=== PATIENT | female | born 1985 | race Caucasian/White ===

== ENCOUNTER 2024-10-03 10:32 | Emergency (ER) | payer BC, SELFPAY ==
[2024-10-03 10:47] VITALS: BP 111/71; PULSE 84; RESP 18; TEMP 36.6; O2SAT 100
--- NOTE | 2024-10-03 11:09 | ED.SKABFB ---
HPI - Skin/Abscess/Foreign Bdy General Chief complaint: Skin/Abscess/Foreign Body Stated complaint: PAIN/REDNESS UNDER L ARMPIT Time Seen by Provider: 10/03/24 11:10 Source: patient and RN notes reviewed Mode of arrival: ambulatory Limitations: no limitations History of Present Illness HPI narrative: 39-year-old female presents to the [facility] with inflammation, bums to the left axilla. Patient reports that she shaved 3 days ago, now has a couple raised pink areas to the left axilla. Tender to palpation. Patient reports that she is breast feeding. Denies any significant past medical or surgical history Onset (ago): day(s) (1) Treatments prior to arrival: none Related Data Allergies Allergy/AdvReac Type Severity Reaction Status Date / Time No Known Allergies Allergy Verified 10/03/24 10:46 Review of Systems Review of Systems: All systems reviewed & are unremarkable except as noted in HPI and below Constitutional: Constitutional: Reports no additional constitutional complaints Musculoskeletal: Musculoskeletal: Reports no additional musculoskeletal complaints Integumentary/Breasts: Skin/Breast: Reports as per HPI PMFSH Comments At the time of my signature, I reviewed and agree with the nursing past medical, surgical, social, and family history. There is no relevant family history pertinent to the patient complaint. Exam Const: General: cooperative, healthy appearing, comfortable, no acute distress, well developed, alert and well nourished Nutritional Appearance: well nourished Orientation/consciousness: patient oriented x3 Limitations: no limitations HENMT: Head: normal to inspection Eyes: General: appearance normal, both eyes and all related structures Alignment and Position: alignment normal Neck: Neck: normal visual inspection, full ROM, no lymphadenopathy and no meningeal signs Chest: Chest palpation & inspection: normal inspection of the chest Resp: Effort & Inspection: normal respiratory effort and able to speak in complete sentences Cardio: Rate: regular rate Skin: General skin exam: normal color and no rashes or lesions noted Other: Mild inflammation to the 3 areas of the left axilla, pink in color, no increased warmth. Neuro: General: patient oriented x3, gait normal, moves all extremities and no meningeal signs Cognition (Neuro): normal cognition Speech: normal speech Gait exam (Neuro): Normal gait present Extrem: General: normal to inspection, full ROM, capillary refill normal and normal gait Psych: Appearance: grossly normal and well kempt Mental Status: mental status grossly normal Speech and movement: Normal speech and movement present and Clear speech present Affect: normal affect Attitude: cooperative Course Course Level of Care: Express Care Visit Vital Signs Vital signs: Vital Signs Temperature 98 F 10/03/24 10:47 Pulse Rate 84 10/03/24 10:47 Respiratory Rate 18 10/03/24 10:47 Blood Pressure 111/71 10/03/24 10:47 Pulse Oximetry 100 10/03/24 10:47 Temperature 98 F 10/03/24 10:47 Pulse Rate 84 10/03/24 10:47 Respiratory Rate 18 10/03/24 10:47 Blood Pressure 111/71 10/03/24 10:47 Pulse Oximetry 100 10/03/24 10:47 Reviewed MDM - Skin/Abscess/Foreign Bdy MDM Narrative Medical decision making narrative: Patient sitting in exam room. Patient is nontoxic, vitals are stable. Patient denies any past medical history. Patient presents with concerns to 3 swollen areas, 1 cm in diameter each. Patient reports that they were red and warm to touch. Now pink, discussed concerns for folliculitis, keeping clean and dry. Unlikely cellulitis but due to patient breast feeding concerns for infection will cover with antibiotic Patient appropriate for outpatient treatment with close follow-up Discharge instructions reviewed with patient, as well as provided in writing per nursing staff. The instructions also include specific and strict return/GO TO THE ER as well as f/u information. All questions have been answered, and the patient deny any further questions with discharge and discharge plan. Some parts of this dictation were generated by voice recognition software and may contain typographical and/or grammatical inaccuracies. Differential Diagnosis Differential diagnosis: Likely abscess of skin or subcutaneous tissue, viral exanthem, dermatophytosis, herpes zoster, allergic reaction to drug, cellulitis, eczema, insect bites, impetigo and contact dermatitis Critical Care Time Critical Care Time Critical Care Time: No Discharge Plan Discharge Clinical Impression: Inflammation of hair follicles Patient Disposition: Home Condition: Stable Instructions: Antibiotic Form, Folliculitis (ED) Additional Instructions: Wash area twice a day with warm soapy water. Apply warm compresses every 2-3 hours for 15-20 minutes while awake. Use a new razor every time you shave. Follow-up with primary care provider if no improvement Patient Language: Ukrainian Prescriptions: New cephalexin 500 mg capsule 500 mg PO Q8H 7 Days Qty: 21 0RF Follow-up/Referrals: PHYSICIAN,RAPID [employer]SO[facility]ITCHER [Primary Care Provider] - Time of Disposition: 11:24
== END 2024-10-03 11:35 | disposition home or self-care (01) ==
PROVIDERS: Emergency Provider Nurse Practitioner
DX: L73.9 Follicular disorder, unspecified (principal)
CPT/HCPCS: 99213; G0463